=== PATIENT | male | born 1960 | race Caucasian/White ===

== ENCOUNTER 2018-04-10 07:28 | Observation (INO) | payer OTHER ==
[2018-04-10] MEDS ORDERED: ASPIRIN EC 325 MG TAB PO ONE (07:30)
[2018-04-10] MEDS ORDERED: diphenhydrAMINE 25 MG CAP PO ONE (07:30)
[2018-04-10] MEDS ORDERED: NS 1,000 ML IV ONE (07:30)
[2018-04-10] MEDS ORDERED: FAMOTIDINE 20 MG TAB PO ONE (07:30)
[2018-04-10] MEDS ORDERED: DIAZEPAM 5 MG TAB PO ONE (07:30)
[2018-04-10 08:15] LABS: PLATELET COUNT 188 10^3/uL (150-400)
[2018-04-10 08:22] LABS: INR 0.96 (0.83-1.16)
--- NOTE | 2018-04-10 11:18 | PDPROPOC ---
Sedation Plan of Care Sedation Plan of Care: vital signs stable, mental status noted, patient educated of risks, benefits, alternatives, patient can tolerate sedation ASA Classification: ASA 2 Planned drugs: fentanyl, midazolam Mallampati Score: Class 2 Mallampati Reference Image: Patient passed 3-3-2 rule?: Yes
--- NOTE | 2018-04-10 11:19 | PDHPUP ---
History & Physical Update H&P update statement: This history and physical update is based on an assessment of the patient which was completed after admission or registration (within 24 hours), but prior to the surgery/procedure. H&P update: H&P reviewed & patient examined, no change in patient's condition since H&P completed
[2018-04-10] MEDS ORDERED: LIDOCAINE 1% 300 MG/30 ML SDV ONE (11:42)
[2018-04-10] MEDS ORDERED: fentaNYL 100 MCG/2 ML INJ ONE (11:42)
[2018-04-10] MEDS ORDERED: IOPAMIDOL (ISOVUE-370) 150 ML BTL IV ONE (11:42)
[2018-04-10] MEDS ORDERED: MIDAZOLAM 2 MG/2 ML VIAL ONE (11:42)
[2018-04-10] MEDS ORDERED: BIVALIRUDIN 250 MG/5 ML VIAL IV ONE (12:47)
[2018-04-10] MEDS ORDERED: CLOPIDOGREL BISULFATE 75 MG TAB ONE (13:11)
[2018-04-10] MEDS ORDERED: ATROPINE SULFATE 1 MG/10 ML SYR IVP PRN (13:17)
[2018-04-10] MEDS ORDERED: NITROGLYCERIN 0.4 MG BTL SL PRN (13:17)
[2018-04-10] MEDS ORDERED: TEMAZEPAM 15 MG CAP PO PRN (13:17)
[2018-04-10] MEDS ORDERED: LORazepam 2 MG/ML INJ IVP PRN (13:17)
[2018-04-10] MEDS ORDERED: ONDANSETRON 4 MG/2 ML VIAL IVP PRN (13:17)
[2018-04-10] MEDS ORDERED: CLOPIDOGREL BISULFATE 75 MG TAB PO ONE (13:17)
[2018-04-10] MEDS ORDERED: NON-FORMULARY NEW DRUG (Insulin Pump, Patient Own 1 EA) MISC SCH (13:30)
--- NOTE | 2018-04-10 13:33 | CPIP ---
DATE OF PROCEDURE: 04/10/2018 PROCEDURE: 1. Coronary angiography. 2. Left ventriculography. 3. Stenting of 1st diagonal artery with Synergy drug-eluting stent. INDICATION: 1. Angina. 2. Abnormal stress test that is intermediate risk in severity. ACCESS: Patient was prepped and draped in the sterile fashion. 1% lidocaine was used to anesthetize the right inguinal region. A 6-Kittitian introducer sheath was placed selectively into the right commo n femoral artery via modified Seldinger technique. CORONARY ANGIOGRAPHY: A 6-Kittitian JL4 was advanced to the left main coronary artery and images obtain ed. The left main coronary artery bifurcated into an LAD and circumflex coronary arteries. The left main coronary artery appeared normal. The left anterior descending coronary artery gave rise to 1 p rominent diagonal branch. The left anterior descending coronary artery had mild luminal irregulariti es to the mid section. There was no stenosis greater than 15%. The 1st diagonal artery was a large vessel. The 1st diagonal artery had a discrete 90% stenosis in the proximal vessel. The circumflex coronary artery was a moderate-sized vessel. The circumflex coronary artery gave rise to 1 prominent OM branch. The circumflex coronary artery had mild luminal irregularities in the proximal segment w ith no stenosis greater than 15%. A 6-Kittitian JR4 was advanced to the right coronary artery and image s obtained. The right coronary artery was dominant. The right coronary artery appeared normal. LEFT VENTRICULOGRAPHY: A 6-Kittitian pigtail catheter was advanced in the left ventricle and images obt ained. Left ventricle was normal size and had normal systolic function. Estimated ejection fraction of 60%. PERCUTANEOUS CORONARY INTERVENTION OF THE DIAGONAL ARTERY: A 6-Kittitian EBU 3.5 catheter was advanced to the left main coronary artery and images obtained. Angiography confirmed the presence of high-gra de disease involving the 1st diagonal artery. A Luge wire was placed in the distal vessel and positi on verified by angiography. A 2.0 x 15 Emerge balloon was used to pre-dilate the lesion. Followup a ngiography demonstrated significant residual stenosis. A 2.25 x 20 Synergy drug-eluting stent was th en placed across the lesion and deployed. Followup angiography demonstrated YOSEF-3 flow. No residua l stenosis. COMPLICATIONS: None. CONCLUSIONS: 1. Single-vessel coronary artery disease. 2. Normal left ventricular size and systolic function. 3. Status post successful percutaneous coronary intervention of the 1st diagonal artery. /[id number]/MODL
[2018-04-10] MEDS ORDERED: D50W 25 GM/50 ML SYR IVP PRN (14:51)
[2018-04-10] MEDS ORDERED: INSULIN PUMP, PATIENT OWN 1 EA MISC SCH (15:00)
[2018-04-10] MEDS ORDERED: ROSUVASTATIN CALCIUM 20 MG TAB PO SCH (21:00)
--- NOTE | 2018-04-10 22:47 | CPEKG ---
Test Reason : OPEN Blood Pressure : / mmHG Vent. Rate : 076 BPM Atrial Rate : 074 BPM P-R Int : 149 ms QRS Dur : 103 ms QT Int : 383 ms P-R-T Axes : 068 -02 009 degrees QTc Int : 431 ms Sinus rhythm Nonspecific intraventricular conduction delay Confirmed by Ge Beaulieu ([id number]) on 04/10/2018 10:46:45 PM Referred By: Confirmed By:Ge Beaulieu
--- NOTE | 2018-04-10 23:13 | CPEKG ---
Test Reason : OPEN Blood Pressure : / mmHG Vent. Rate : 086 BPM Atrial Rate : 086 BPM P-R Int : 138 ms QRS Dur : 102 ms QT Int : 372 ms P-R-T Axes : 053 -14 025 degrees QTc Int : 445 ms Sinus rhythm Leftward axis Confirmed by Ge Beaulieu ([id number]) on 04/10/2018 11:12:46 PM Referred By: Confirmed By:Ge Beaulieu
[2018-04-11 04:21] LABS: PLATELET COUNT 187 10^3/uL (150-400)
[2018-04-11] MEDS ORDERED: ASPIRIN EC 325 MG TAB PO SCH (09:00)
[2018-04-11] MEDS ORDERED: CLOPIDOGREL BISULFATE 75 MG TAB PO SCH (09:00)
[2018-04-11 12:09] VITALS: BP 132/71
--- NOTE | 2018-04-11 14:56 | GDS ---
SUPERVISING CVT RN: Bob Rothman MD ADMISSION DIAGNOSES: 1. Chest pressure. 2. Abnormal exercise treadmill test. 3. Diabetes, type 1. 4. Hyperlipidemia. DISCHARGE DIAGNOSES: 1. Coronary artery disease. 2. Status post percutaneous coronary intervention with stent to first diagonal. 3. Diabetes. 4. Hyperlipidemia. PROCEDURES PERFORMED DURING HOSPITALIZATION: 1. Electrocardiogram. 2. Diagnostic coronary angiogram. 3. Percutaneous coronary intervention of the diagonal with implantation of a 2.25 x 20 Synergy drug eluting stent. BRIEF HISTORY: The patient is a 58-year-old male with type 1 diabetes and hyperlipidemia. He is fol lowed by his primary handbag designer, Dr. Long. Patient has been noting episodes of chest pressure. He did undergo ETT/MPI study, which MPI study showed no signs of ischemia, but exercise treadmill ellen ting did show significant ST depression of 2 mm in inferior lateral leads. Patient despite having no rmal MPI study, patient was having ongoing symptoms. Concerning with his history of diabetes, potent ial balanced ischemia, he underwent diagnostic heart catheterization. HOSPITAL COURSE: Patient admitted to the CVC, prepped for procedure, and taken to the cardiac cathet erization lab. There, Dr. Rothman performed a diagnostic left heart catheterization, in which he was noted, left main appeared normal. LAD gave rise to 1 proximal diagonal branch. LAD had mild luminal irregularities. The first diagonal was a large vessel and had a discrete 90% stenosis. Circumflex artery was moderate size with mild luminal irregularities. Right coronary was dominant and appeared normal. LV gram was done showing normal LV systolic function, no wall motion abnormalities, EF of 60 %. At that time, percutaneous coronary intervention was done to the first diagonal with a 2.25 x 20 Synergy FABIOLA implantation. No apparent complications. Patient was transferred back to the CVC, and ultimately to the PCU for overnight observation. There, he has maintained sinus rhythm with no malignant arrhythmias or pauses. He has been up and walking the unit without difficulties. He denies of any chest pain, pressure symptoms suggesting of ischemia . PHYSICAL EXAMINATION: GENERAL APPEARANCE: Today, a medium build, mildly overweight male. He is alert and oriented to person, place, time, and situation. Appears to be under no acute distre ss. VITAL SIGNS: Current: Blood pressure 132/71, heart rate of 82, sinus rhythm on the monitor, re spirations 14, saturating 95% on room air, temperature 36.8 degrees Celsius. HEENT: Head is normoce phalic. Lips and tongue are pink and moist with no signs of cyanosis. Conjunctivae pink. NECK: Tr achea is midline, +2 carotid pulses bilateral. No auscultated bruits. No jugular vein distention. RESPIRATORY: Lungs are clear to auscultation. No rhonchi, rales or wheezes. No accessory muscle use . No intercostal muscle retraction noted. CARDIAC: Regular rate, regular rhythm, S1, S2. No S3, S 4, gallops, rubs, or murmurs noted. ABDOMEN: Soft, nontender. Bowel sounds x4 quadrants. No organ omegaly. No palpable masses. SKIN: [place], warm, dry. No cyanosis. No clubbing. No peripheral kamaljit ma. VASCULAR: +2 carotids bilateral, +2 radials bilateral, +2 dorsal pedal and posterior tibial pul ses bilateral. GROIN: Right groin site, catheter insertion site, with no redness, swelling, drainage, ecchymosis, o r hematoma. No auscultated bruit over site. CMS checks within normal limits to right lower extremit y. LABORATORY DATA: Drawn today show WBC of 8.17, hemoglobin of 13.5, hematocrit of 40.0, platelet coun t of 187. Sodium of 137, potassium 4.4, chloride 106, CO2 27, BUN 14, creatinine 0.7, glucose 87, ca lcium 9.7. DIAGNOSTIC DATA: Diagnostic heart catheterization. Percutaneous coronary intervention as mentioned above. Today's electrocardiogram showed sinus rhythm, normal axis, no significant ST or T-wave abnor malities. DISCHARGE DISPOSITION: Patient will be discharged home in stable condition. He is under activity re strictions of not lifting more than 10 pounds for the next week and no strenuous activity for the nex t 2 weeks. DISCHARGE MEDICATIONS: Please see discharge medication reconciliation. Note, patient's regular dose of aspirin has been increased to 325 mg p.o. daily, and he has also been started on clopidogrel 75 m g p.o. daily. DISCHARGE INSTRUCTIONS: Post-percutaneous coronary intervention discharge instructions went over wit h the patient, including activity restrictions, monitoring for signs of infection, monitoring for ble eding precautions, and medication compliancy. The importance of dual antiplatelet therapy with recei artieg a new drug-eluting stent were extremely stressed with this patient. Him and his both verba lized understanding. At the time of discharge, patient and have no questions or concerns. Serina ent has been set up a followup appointment with his primary cardiology, Dr. Long, to be done on Apr. Patient has been told that if any problems or concerns come up post-discharge, he is to notify our office or return to the hospital. Total time spent on discharge greater than 30 minutes. /[id number]/MODL
--- NOTE | 2018-04-11 21:32 | CPEKG ---
Test Reason : OPEN Blood Pressure : / mmHG Vent. Rate : 085 BPM Atrial Rate : 086 BPM P-R Int : 141 ms QRS Dur : 107 ms QT Int : 370 ms P-R-T Axes : 069 005 027 degrees QTc Int : 440 ms Sinus rhythm Q waves in lead III Confirmed by Ge Beaulieu ([id number]) on 04/11/2018 9:32:01 PM Referred By: Confirmed By:Ge Beaulieu
== END 2018-04-11 14:35 | disposition home or self-care (01) ==
LOC: FCATH 07:28 → F2W 13:19
PROVIDERS: ADMIT Internal Medicine Cardiovascular Disease; ATTEND Internal Medicine Cardiovascular Disease
DX: I25.10 Atherosclerotic heart disease of native coronary artery without angina pectoris (principal); E10.9 Type 1 diabetes mellitus without complications; E78.5 Hyperlipidemia, unspecified
CPT/HCPCS: 92928; 93005; 93458; C1725; C1769; C1887; G0378; C1760; C1874; C9600; J0583; J1644; J2250; J2405; J3010; Q9967